=== PATIENT | male | born 2000 | race Caucasian/White ===

== ENCOUNTER 2023-02-26 09:09 | Emergency (ER) | payer OTHER ==
[~2023-02-26] VITALS: Ht 162.6 cm; Wt 58.1 kg
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
--- NOTE | 2023-02-26 09:20 | NUR ---
DR GUZMAN AT BED SIDE.
--- NOTE | 2023-02-26 09:30 | NUR ---
[employer] AT BED SIDE FOR BOOKING.
--- NOTE | 2023-02-26 09:35 | NUR ---
CALLED [facility] [phone] AND SPOKE WITH LETY. FAXED AUTHORIZATION TO RELEASE MEDICAL INFORMATION TO [phone]
[2023-02-26] MEDS ORDERED: FLUORESCEIN SODIUM OPHTH 1 EA STRIP ONE (09:39)
[2023-02-26] MEDS ORDERED: TETRACAINE HCL 2% OPHTHALIC 30 ML BOTTLE EACHEYE ONE (10:00)
[2023-02-26] MEDS ORDERED: FLUORESCEIN SODIUM OPHTH 1 EA STRIP OP ONE (10:00)
--- NOTE | 2023-02-26 10:32 | NUR ---
DR GUZMAN AT BED SIDE.
--- NOTE | 2023-02-26 12:43 | NUR ---
GIVEN ICE TO DECREASE SWELLING AND INTRAOCCULAR PRESSURE.
[2023-02-26] MEDS ORDERED: IBUP-1955 PO (13:35)
[2023-02-26] MEDS ORDERED: ERYT3.5O9 LEFTEYE (13:35)
--- NOTE | 2023-02-26 13:42 | NUR ---
X RAY CALLED TO EXPIDITE RESULTS.
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
[2023-02-26 14:42] VITALS: BP 118/81; TEMP 98.2
== END 2023-02-26 14:30 ==
LOC: ER 09:11
DX: S00.12XA Contusion of left eyelid and periocular area, initial encounter (principal); S30.0XXA Contusion of lower back and pelvis, initial encounter; H11.32 Conjunctival hemorrhage, left eye; Z79.899 Other long term (current) drug therapy; Y04.8XXA Assault by other bodily force, initial encounter; Y93.89 Activity, other specified; Y92.89 Other specified places as the place of occurrence of the external cause; Y99.8 Other external cause status
CPT/HCPCS: 71100-TC